=== PATIENT | female | born 1980 | race Caucasian/White ===

== ENCOUNTER 2016-12-16 05:36 | Emergency (ER) | payer MEDICAID, OTHER ==
[2016-12-16 06:09] LABS: BILIRUBIN,URINE NEGATIVE (NEGATIVE)
[2016-12-16 06:11] LABS: HCG UR QUAL NEGATIVE; UA w/ MICROSCOPIC CHARGE YES
[2016-12-16 06:17] LABS: UR CULTURE IF IND NOT INDICATED; WBC,URINE 0-3 /HPF (0-5)
[2016-12-16] MEDS ORDERED: ACETAMINOPHEN 500 MG TABLET PO STA (06:29)
--- NOTE | 2016-12-16 06:32 | ED Physician Documentation ---
PD HPI FEMALE - Stated complaint Stated Complaint: CRAMPING - Chief complaint Chief Complaint: Abd Pain - History obtained from History obtained from: Patient, Family - History of Present Illness Timing - onset: Today Timing - details: Abrupt onset, Waxing and waning Associated symptoms: Vaginal bleeding Contributing factors: No: Similar symptoms before: Has not had sx before Recently seen: Not recently seen - Additional information Additional information: Patient is a 36 year old female with no significant past medical history who is presenting to the emergency department for vaginal bleeding and pelvic pain. Patient states that she is two days late on her period. this morning she woke up with severe pelvic pain and vaginal bleeding. Patient states that she wanted to make sure that she wasn't having an ectopic . Review of Systems Constitutional: reports: Sweats. denies: Fever, Chills Eyes: denies: Loss of vision, Decreased vision Ears: denies: Loss of hearing, Ear pain Nose: denies: Rhinorrhea / runny nose, Congestion Throat: denies: Dental pain / toothache, Sore throat Cardiac: denies: Chest pain / pressure, Palpitations Respiratory: denies: Dyspnea, Cough GI: reports: Abdominal Pain, Nausea. 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 - Past Surgical History Past Surgical History: No - Social History Does the pt smoke?: No Smoking Status: Never smoker Does the pt drink ETOH?: No Does the pt have substance abuse?: No - Immunizations Immunizations are current?: Yes - POLST Patient has POLST: No PD ED PE NORMAL - Vitals Vital signs reviewed: Yes - General General: Alert and oriented X 3, No acute distress, Well developed/nourished - HEENT HEENT: Atraumatic, PERRL, Pharynx benign - Neck Neck: Supple, no meningeal sign, No JVD - Cardiac Cardiac: RRR, No murmur - Respiratory Respiratory: No respiratory distress, Clear bilaterally - Abdomen Abdomen: Soft, Non tender, Non distended - Female Female : Deferred - Derm Derm: Normal color, Warm and dry, No rash - Extremities Extremities: No deformity, No tenderness to palpate - Neuro Neuro: Alert and oriented X 3, No motor deficit, Normal speech - Psych Psych: Normal mood, Normal affect Results - Vitals Vitals: Vital Signs - 24 hr 12/16/16 05:40 Temperature 36.3 C L Heart Rate 87 Respiratory 16 Rate Blood Pressure 116/56 L O2 Saturation 98 Oxygen O2 Source Room air - Labs Labs: Laboratory Tests 12/16/16 05:55 Urine Color YELLOW Urine Clarity CLEAR Urine pH 7.0 Ur Specific Davidson 1.020 Urine Protein TRACE Urine Glucose (UA) NEGATIVE Urine Ketones NEGATIVE Urine Occult Blood LARGE H Urine Nitrite NEGATIVE Urine Bilirubin NEGATIVE Urine Urobilinogen 0.2 (NORMAL) Ur Leukocyte Esterase NEGATIVE Urine RBC 11-25 H Urine WBC 0-3 Ur Squamous Epith Cells MOD Squamous H Urine Bacteria Few Ur Microscopic Review INDICATED Urine Culture Comments NOT INDICATED Urine HCG, Qual NEGATIVE PD MEDICAL DECISION MAKING - ED course Complexity details: reviewed old records, reviewed results, re-evaluated patient , considered differential, d/w patient ED course: Patient was seen and examined at bedside. Patient's vital signs were within normal limits. patient was not nor did she have a uti. Patient required no further work up and was stable for dishcarge with outpatiennt follow up. Departure - Departure Disposition: 01 Home, Self Care Clinical Impression: Dysmenorrhea Condition: Good Instructions: ED Pelvic Pain [facility] Follow-Up: Cassidy Negron DO [Provider Admit Priv/Credential] - Within 1 week Comments: Your diagnostics today were within normal limits indicating it is likely your period starting. You should take tylenol or an nsaid for pain. You should follow up with Dr. Negron if your symptoms persist. You may return to the emergency department at any time for new, worsening or uncontrollable symptoms.
[2016-12-16] MEDS ORDERED: ACETAMINOPHEN 500 MG TABLET PO ONE (06:36)
[2016-12-16 06:50] VITALS: BP 111/63
== END 2016-12-16 06:50 | disposition home or self-care (01) ==
LOC: ED 05:36
DX: N94.6 Dysmenorrhea, unspecified (principal)
CPT/HCPCS: 81001; 81025; 99283; A9270; 81003; 87086